=== PATIENT | male | born 1990 | race Caucasian/White ===

== ENCOUNTER 2018-06-14 23:38 | Emergency (ER) | payer OTHER ==
[~2018-06-14] VITALS: Ht 165.1 cm; Wt 85.0 kg
[2018-06-14 23:40] VITALS: BP 121/80
== END 2018-06-15 00:05 | disposition home or self-care (01) ==
LOC: ED 06-15 00:01
DX: S39.012A Strain of muscle, fascia and tendon of lower back, initial encounter (principal); F17.200 Nicotine dependence, unspecified, uncomplicated; X50.9XXA Other and unspecified overexertion or strenuous movements or postures, initial encounter; Y93.89 Activity, other specified; Y92.89 Other specified places as the place of occurrence of the external cause; Y99.8 Other external cause status
CPT/HCPCS: 99283

== ENCOUNTER 2019-01-05 22:03 | Emergency (ER) | payer MEDICAID ==
[~2019-01-05] VITALS: Ht 162.6 cm; Wt 98.7 kg
[2019-01-05 22:08] VITALS: BP 125/76
[2019-01-05] MEDS ORDERED: IBUP-1223 PO (22:14)
[2019-01-05] MEDS ORDERED: ALBUTEROL/IPRATROPIUM 2.5MG/0.5MG, 3 ML NPPB ONE (22:30)
--- NOTE | 2019-01-05 22:38 | NUR ---
PT HERE FOR COUGH AND SOB. PT MEDICATED WITH PREDNISONE. RT AT BEDSIDE
--- NOTE | 2019-01-05 22:59 | NUR ---
Patient given discharge instructions and they have confirmed that they understand the instructions. Patient ambulatory with steady gait.
== END 2019-01-05 23:01 | disposition home or self-care (01) ==
LOC: ED 22:45
DX: J45.31 Mild persistent asthma with (acute) exacerbation (principal)
CPT/HCPCS: 71046; 93005; 94640; 99283; J7512; J7620

== ENCOUNTER 2019-01-20 17:01 | Emergency (ER) | payer MEDICAID ==
[~2019-01-20] VITALS: Ht 165.1 cm; Wt 99.6 kg
[~2019-01-20 17:01] MED LIST: IBUP-1223 PO
[2019-01-20] MEDS ORDERED: HYDROcodone/APAP 5/325 TABLET ONE (17:24)
[2019-01-20] MEDS ORDERED: HYDROcodone/APAP 5/325 TABLET PO ONE (17:30)
[2019-01-20 17:56] VITALS: BP 139/76
== END 2019-01-20 18:20 | disposition home or self-care (01) ==
LOC: ED 17:40
DX: K02.9 Dental caries, unspecified (principal); K04.7 Periapical abscess without sinus; J45.909 Unspecified asthma, uncomplicated; Z87.891 Personal history of nicotine dependence
CPT/HCPCS: 99283

== ENCOUNTER 2020-02-10 14:50 | Emergency (ER) | payer MEDICAID ==
[~2020-02-10] VITALS: Ht 165.1 cm; Wt 106.6 kg
--- NOTE | 2020-02-10 15:17 | NUR ---
PT PRESENTING TO ER FOR INCREASED DIFFICULTY BREATHING WITH COUGH X4 DAYS. HX OF ASTHMA, EXP WHEEZES HEARD MORE ON RIGHT. PT REPORTING INTMITTENT CHEST TIGHTNESS USUALLY AT NIGHT AFTER COUGHING. CONNECTED TO MONITORING, VSS AT THIS TIME. CALL LIGHT WITHIN REACH. AWAITNG MD ORDER.
--- NOTE | 2020-02-10 15:24 | NUR ---
PA TO BEDSIDE AT THIS TIME. PT ALSO REPORTS USED HOME INHALER YESTERDAY WITH SOME RELIEF
[2020-02-10] MEDS ORDERED: ALBUTEROL SULFATE 2.5 MG/3 ML ONE (15:30)
[2020-02-10] MEDS ORDERED: ALBUTEROL SULFATE 2.5 MG/3 ML NPPB ONE (15:30)
--- NOTE | 2020-02-10 15:48 | NUR ---
ALBUTERAL BRETHING TREATMENT COMPLETED, WITH PA PERMISSION. RAD AT BEDSIDE. AWAITING TEST RESULTS
[2020-02-10] MEDS ORDERED: ALBUTEROL HFA 90 MCG/SPRAY INH PRN (16:00)
[2020-02-10 16:35] VITALS: BP 107/56
--- NOTE | 2020-02-10 16:36 | NUR ---
BREAK RN: SEBASTIAN DO AT BEDSIDE FOR RECHECK/EXPLANATION OF RESULTS. PT VERBALIZES UNDERSTANDING. ALL QUESTIONS ANSWERED. PT MEDICATED OREDERED. PT AO X 4. SKIN WARM AND DRY. RESP EVEN AND UNLABORED. PT ABLE TO SPEAK IN FULL 5-7 WORD SENTENCES W/O DIFFICULTY. NO COUGH NOTED BY RN AT THIS TIME. PT ON CONT BP AND O2 MONITORS. CALL LIGHT WITHIN REACH.
== END 2020-02-10 16:58 | disposition home or self-care (01) ==
LOC: ED 16:04
DX: J45.31 Mild persistent asthma with (acute) exacerbation (principal); Z87.891 Personal history of nicotine dependence; Z88.0 Allergy status to penicillin
CPT/HCPCS: 71045; 99283; J7512

== ENCOUNTER 2020-02-20 13:12 | Emergency (ER) | payer MEDICAID ==
[~2020-02-20] VITALS: Ht 165.1 cm; Wt 105.8 kg
[2020-02-20 14:54] VITALS: BP 127/67
== END 2020-02-20 14:57 | disposition home or self-care (01) ==
LOC: ED 14:15
DX: J02.8 Acute pharyngitis due to other specified organisms (principal); Z20.828 Contact with and (suspected) exposure to other viral communicable diseases; R05 Cough; J45.909 Unspecified asthma, uncomplicated; Z87.891 Personal history of nicotine dependence
CPT/HCPCS: 99283; U0001

== ENCOUNTER 2020-09-02 12:42 | Emergency (ER) | payer MEDICAID ==
[~2020-09-02] VITALS: Ht 165.1 cm; Wt 104.9 kg
[2020-09-02 13:00] VITALS: BP 94/61
[2020-09-02] MEDS ORDERED: HYDROcodone/APAP 5/325 TABLET PO STA (13:08)
[2020-09-02] MEDS ORDERED: CYCLOBENZAPRINE 10 MG TABLET PO ONE (13:30)
[2020-09-02] MEDS ORDERED: KETOROLAC 30 MG/1 ML IM ONE (13:30)
--- NOTE | 2020-09-02 14:05 | NUR ---
pt ambulates from [facility] to [facility] with steady gait. pt educated on er process and poc.
[2020-09-02] MEDS ORDERED: KETOROLAC 30 MG/1 ML ONE (14:17)
[2020-09-02] MEDS ORDERED: HYDROcodone/APAP 5/325 TABLET ONE (14:18)
[2020-09-02] MEDS ORDERED: CYCLOBENZAPRINE 10 MG TABLET ONE (14:18)
--- NOTE | 2020-09-02 14:27 | NUR ---
PT MEDICATED PER MAR AT THIS TIME.
--- NOTE | 2020-09-02 15:38 | NUR ---
PT D/C WITH D/C SUMMARY AND SCRIPTS. ALL QUESTIONS ANSWERED. PT AMBUALTES TO REGISTRATION DESK WITH STEADY GAIT FOR D/C HOME. PT DENIES ANY OTHER NEEDS AT THIS TIME.
== END 2020-09-02 15:42 | disposition home or self-care (01) ==
LOC: ED 15:05
DX: S39.012A Strain of muscle, fascia and tendon of lower back, initial encounter (principal); X58.XXXA Exposure to other specified factors, initial encounter; Y93.89 Activity, other specified; Y92.89 Other specified places as the place of occurrence of the external cause; Y99.8 Other external cause status
CPT/HCPCS: 72110; 99283

== ENCOUNTER 2021-02-04 10:44 | Emergency (ER) | payer MEDICAID ==
[~2021-02-04] VITALS: Ht 165.1 cm; Wt 92.9 kg
[2021-02-04 11:00] VITALS: BP 119/79
--- NOTE | 2021-02-04 11:15 | NUR ---
PT WALKED BACK FROM TRIAGE WITH CHIEF COMPLAINT OF LOW BACK PAIN, AND WATERS INTERMITTENT FOR FEW MONTHS. PT DENIES CP, SOB, N/V
--- NOTE | 2021-02-04 11:31 | NUR ---
KANA CARROLL AT BEDSIDE FOR EVALUATION. POC DISCUSSED
== END 2021-02-04 11:45 | disposition home or self-care (01) ==
LOC: ED 11:42
DX: S39.012A Strain of muscle, fascia and tendon of lower back, initial encounter (principal); X58.XXXA Exposure to other specified factors, initial encounter; Y93.89 Activity, other specified; Y92.89 Other specified places as the place of occurrence of the external cause; Y99.8 Other external cause status
CPT/HCPCS: 99281